=== PATIENT | male | born 1940 | race Caucasian/White ===

== ENCOUNTER → 2022-10-26 | Outpatient (CLI) | payer MEDICARE, SELFPAY ==
--- NOTE | 2022-10-26 14:10 | RAD_ITS ---
STUDY: X-RAY - ABDOMEN/PELVIS REASON FOR EXAM: Male, 82 years old. DIARRHEA TECHNIQUE: Single AP view of the abdomen / pelvis. COMPARISON: None. FINDINGS: Normal visualized lung bases. There is a moderate amount of colonic fecal material. Tiny right intrarenal calculi. Normal soft tissue structures. There are diffuse degenerative changes of the visualized lumbar spine. RAD/Abdomen Single View IMPRESSION: Moderate amount of fecal material is seen in the colon. Small calculi are seen in the right kidney. Electronically Signed: Geoff Do MD at 14:40 EDT ,
[2022-10-26 17:26] LABS: Absolute Neutrophil Count 3.4 X10^3/uL (2.0-7.7); Basophil# 0.04 X10^3/uL; Basophil% 0.7 % (0-1); Eosinophils% 3.6 % (0-5); Hematocrit 45.5 % (40-54); Hemoglobin 14.5 g/dL (13.0-16.5); Lymphocyte % 26.9 % (19-41); Mean Corp Hgb Conc 31.9 g/dL (32-36); Mean Corpuscular Hgb 30.5 pg (27.0-32.0); Mean Corpuscular Volume 95.6 fL (80-94); Mean Platelet Vol. 10.3 fl (6.2-12.0); Monocyte% 7.2 % (0-10); NRBC Flagged by Analyzer 0 % (0-5); Neutrophil # 3.41 X10^3/uL (2.7-7.7); Neutrophil % 61.2 % (47-70); Platelet Count 187 K/mm3 (150-450); RBC Distribution Width CV 14.1 % (11.6-14.6); RBC Distribution Width SD 49.6 fl (35.1-43.9); Red Blood Count 4.76 M/mm3 (4.6-6.2); White Blood Count 5.6 K/mm3 (4.4-11.0)
[2022-10-26 18:46] LABS: ALB/GLOB Ratio 1.2 RATIO (0.9-2.4); AST(SGOT) 16 U/L (15-37); Alanine Aminotransfer ALT/SGPT 24 U/L (16-61); Albumin, Serum 3.5 g/dL (3.2-5.0); Alkaline Phosphatase 68 U/L (45-117); Anion Gap 9 (5-15); BUN 22 mg/dL (7-18); BUN/Creat Ratio 17.5 RATIO (10-20); Calcium,Total 9.5 mg/dL (8.5-10.1); Chloride 106 mmol/L (98-107); Creatinine, Serum 1.26 mg/dL (0.70-1.30); EST Glomerular Filtration Rate 58 mL/min (>60); Est Glom Filt Rate - Afr Amer 70 mL/min (>60); Glucose 129 mg/dL (74-106); Potassium 3.9 mmol/L (3.5-5.1); Protein, Total 6.5 g/dL (6.4-8.2); Sodium Level 144 mmol/L (136-145)
[2022-10-26 19:28] LABS: Hepatitis C Antibody Non-Reactive (Nonreactive); Syphilis Antibodies Non-reactive; Vitamin B12 152 pg/mL (211-911); Vitamin D,25 Hydroxy 38.1 ng/mL
== END | disposition home or self-care (01) ==
PROVIDERS: PCP Family Medicine Geriatric Medicine; Referring Provider Family Medicine Geriatric Medicine; Visit Provider Family Medicine Geriatric Medicine
DX: R19.7 Diarrhea, unspecified (principal); F09 Unspecified mental disorder due to known physiological condition; I10 Essential (primary) hypertension; Z13.29 Encounter for screening for other suspected endocrine disorder; N20.0 Calculus of kidney
CPT/HCPCS: 36415; 74018; 80053; 82306; 82607; 82746; 84443; 85025; 86780; 86803

== ENCOUNTER 2022-11-10 13:01 | Outpatient (CLI) | payer MEDICARE, SELFPAY ==
--- NOTE | 2022-11-10 13:05 | CT_ITS ---
EXAM: CT HEAD WITHOUT INTRAVENOUS CONTRAST CLINICAL INDICATION: MILD COGNITIVE DISORDER TECHNIQUE: Multiple axial images were obtained of the head without intravenous contrast. This CT exam was performed using one or more of the following dose reduction techniques: automated exposure control, adjustment of the mA and/or kV according to patient size, and/or use of iterative reconstruction technique. RADIATION DOSE: CTDIvol = 47.06 mGy, DLP = 925.62 mGy-cm COMPARISON: No relevant prior studies available. FINDINGS: BRAIN AND EXTRA-AXIAL SPACES: Moderate cerebral volume loss. Mild low-attenuation chronic white matter changes. Mild cerebellar volume loss. Moderate intracranial carotid calcifications. No intra- or extra-axial hemorrhage. No evidence of acute infarct. No intracranial mass or mass effect. There is preservation of the gomes/white matter interface. Ventricles are appropriate for age. No hydrocephalus. Basal cisterns are patent. BONES/JOINTS: Unremarkable. No discrete lytic or blastic abnormalities. SINUSES: Completely included sinuses. Unremarkable. MASTOID AIR CELLS: Unremarkable. Clear. ORBITS: Visualized globes, extraocular muscles, optic nerves and retrobulbar fat appear unremarkable. CT/Brain/Head without Contrast IMPRESSION: No acute intracranial abnormality. Moderate chronic changes. Electronically Signed: Luci Mcbride MD at 22:13 EDT ,
--- NOTE | 2022-11-10 13:05 | CT_ITS ---
STUDY: LOW DOSE CT LUNG CANCER SCREENING REASON FOR EXAM: Male, 82 years old. Previous smoker 1.5 ppd x 40 years. Quit 1998. Hypertension, diabetic RADIATION DOSAGE (If Supplied By Facility): CTDIvol = ( 2.39 ) mGy, DLP = ( 83.39 ) mGycm TECHNIQUE: No contrast was administered. Low dose technique was utilized (average mAS-38 and kVp 120). 1.25 mm axial source images with a slice interval of 1.25-mm were reconstructed in lung windows. 2.5 mm axial coronal and sagittal reformats. COMPARISON: None NODULES: Punctate right apical and medial right lung calcified granulomas. No suspicious pulmonary nodules. Parenchyma: Mild bilateral apical scarring. No airspace consolidation, effusion, pneumothorax. Mild peribronchial thickening. No endobronchial mass or layering debris Aorta: Aortic atherosclerosis with ascending aortic ectasia to 3.9 cm CORONARY ARTERIES: Multivessel moderate coronary atherosclerosis. Heart: 2-lead left chest cardiac pacer Pulmonary artery: No main pulmonary arterial enlargement. Mediastinal nodes: No mediastinal or bulky hilar adenopathy. Other chest and abdominal findings: Partial fatty replacement of the pancreas CT/Low Dose CT Lung Screening IMPRESSION: Sequela of prior granulomatous disease. No suspicious pulmonary nodules. Mild bilateral peribronchial thickening as can be seen with bronchitis/bronchiolitis. Borderline ascending aortic ectasia at 3.9 cm. Multivessel coronary atherosclerosis with ascending aorta. Lung-RADS category 1s - Continue annual screening with LDCT in 12 months. IMPORTANT NOTES FOR USE: ACR Lung-RADS Version 1.1 Assessment Categories Release Date: 2018 Category: Coded 0-4 bases on nodule(s) with highest degree of suspicion. Negative screen is defined as categories 1 and 2; a positive screen is defined as categories 3 and 4. Category 3 and 4A nodules that are unchanged on interval CT should be coded as category 2, and individuals returned to screening in 12 months. Category 4X: Category 3 or 4 nodules with additional imaging findings that increase the suspicion of lung cancer, such as spiculation, GGN that doubles in size in 1 year, enlarged lymph notes, etc. Category Modifiers: S (significant finding unrelated to lung cancer) Electronically Signed: Luis Daniel Klein MD at 6:22 EDT ,
== END 2022-11-10 23:59 | disposition home or self-care (01) ==
PROVIDERS: PCP Family Medicine Geriatric Medicine; Referring Provider Family Medicine Geriatric Medicine; Visit Provider Family Medicine Geriatric Medicine
DX: F09 Unspecified mental disorder due to known physiological condition (principal); Z13.89 Encounter for screening for other disorder; Z87.891 Personal history of nicotine dependence
CPT/HCPCS: 70450; 71271

== ENCOUNTER → 2022-12-27 | Outpatient (CLI) | payer MEDICARE, SELFPAY ==
--- NOTE | 2022-12-27 08:54 | AAAS_ITS ---
Reason For Study: Screening Aorta Measurements Aorta Doppler Measurements Proximal aorta measures2.21 x 2.24cm. in cross- Peak systolic flow velocities within the proximal sectional axis. aorta measure 59.6 cm/sec. Proximal aorta measures2.17cm. in longitudinal Peak systolic flow velocities within the mid aorta axis. measure 88.6 cm/sec. Mid aorta measures1.95 x 1.92cm. in cross- Peak systolic flow velocities within the distal sectional axis. aorta measure 86.8 cm/sec. Mid aorta measures1.90cm. in longitudinal axis. Distal aorta measures1.76 x 1.66cm. in cross- sectional axis. Distal aorta measures1.66cm. in longitudinal axis. Heterogenous smooth plaque visualized throughout mid and distal portions of AO. Left Iliac Artery Left iliac artery measures 0.94 x 0.98 cm. in the cross-sectional axis. Left iliac artery measures 0.94 cm. in the longitudinal axis. Peak systolic velocity in the left iliac artery measures 115.8 cm/sec. Right Iliac Artery Right iliac artery measures 0.85 x 0.89 cm. in the cross-sectional axis. Right iliac artery measures 0.95 cm. in the longitudinal axis. Peak systolic velocity in the right iliac artery measures 79.6 cm/sec. Procedure Aorta IVC Iliac vasculature or bypass grafts [id number]. The exam was diagnostic. Exam performed in department. VL/AAA Screening Interpretation Summary Aorta patent, normal caliber Bilateral iliac arteries patent, normal caliber Ordering Physician: Enoc Taylor Chi Referring Physician: Enoc Taylor Chi Performed By: Ulysses Kent, RVT
== END | disposition home or self-care (01) ==
LOC: CVS 08:53
PROVIDERS: PCP Family Medicine Geriatric Medicine; Referring Provider Family Medicine Geriatric Medicine; Visit Provider Family Medicine Geriatric Medicine
DX: I71.40 Abdominal aortic aneurysm, without rupture, unspecified (principal)
CPT/HCPCS: 76706

== ENCOUNTER → 2023-01-30 | Outpatient (CLI) | payer MEDICARE, SELFPAY ==
--- NOTE | 2023-01-30 12:00 | RAD_ITS ---
STUDY: X-RAY - ABDOMEN/PELVIS REASON FOR EXAM: Male, 82 years old. Evaluate for fecal impaction. TECHNIQUE: Single AP view of the abdomen / pelvis on 3 images. COMPARISON: Abdominal images dated October 26, 2022. FINDINGS: Normal visualized lung bases. Normal bowel gas pattern with air seen to the rectosigmoid. No disproportionate dilatation of bowel. No free air. Moderate amount of feces in the colon. The visualized liver, spleen and kidneys are grossly normal in size and morphology. Normal soft tissue structures. Normal visualized osseous structures. RAD/Abdomen Single View IMPRESSION: No acute abnormality. Moderate amount of feces in the colon. Electronically Signed: Edagr Anderson MD at 10:24 EDT ,
== END | disposition home or self-care (01) ==
LOC: RAD 11:54
PROVIDERS: PCP Family Medicine Geriatric Medicine; Referring Provider Family Medicine Geriatric Medicine; Visit Provider Family Medicine Geriatric Medicine
DX: K56.41 Fecal impaction (principal)
CPT/HCPCS: 74018

== ENCOUNTER → 2023-05-08 | Outpatient (CLI) | payer MEDICARE, SELFPAY ==
[2023-05-08 12:13] LABS: Absolute Lymphocyte Count 1.23 X10^3/uL (0.83-4.51); Absolute Neutrophil Count 4.3 X10^3/uL (2.0-7.7); Basophil# 0.03 X10^3/uL; Basophil% 0.5 % (0-1); Eosinophil# 0.13 X10^3/uL; Eosinophils% 2.1 % (0-5); Hemoglobin 13.9 g/dL (13.0-16.5); Lymphocyte # 1.23 X10^3/ul (0.83-4.51); Mean Corp Hgb Conc 31.6 g/dL (32-36); Mean Corpuscular Hgb 29.1 pg (27.0-32.0); Mean Corpuscular Volume 92.1 fL (80-94); Mean Platelet Vol. 10.4 fl (6.2-12.0); Monocyte# 0.38 X10^3/uL; Monocyte% 6.2 % (0-10); NRBC Flagged by Analyzer 0 % (0-5); Neutrophil # 4.34 X10^3/uL (2.7-7.7); Neutrophil % 70.7 % (47-70); Platelet Count 169 K/mm3 (150-450); RBC Distribution Width CV 14.4 % (11.6-14.6); RBC Distribution Width SD 48.7 fl (35.1-43.9); Red Blood Count 4.78 M/mm3 (4.6-6.2); White Blood Count 6.1 K/mm3 (4.4-11.0)
[2023-05-08 12:32] LABS: Vitamin D,25 Hydroxy 40.4 ng/mL
[2023-05-08 12:39] LABS: AST(SGOT) 16 U/L (15-37); Alanine Aminotransfer ALT/SGPT 19 U/L (16-61); Albumin, Serum 3.4 g/dL (3.2-5.0); Alkaline Phosphatase 86 U/L (45-117); Anion Gap 5 (5-15); BUN 21 mg/dL (7-18); BUN/Creat Ratio 15.4 RATIO (10-20); Calcium,Total 9.3 mg/dL (8.5-10.1); Chloride 104 mmol/L (98-107); Creatinine, Serum 1.36 mg/dL (0.70-1.30); EST Glomerular Filtration Rate 53 mL/min (>60); Est Glom Filt Rate - Afr Amer 64 mL/min (>60); Globulin 3.3 g/dL (2.2-4.2); Glucose 225 mg/dL (74-106); Potassium 4.4 mmol/L (3.5-5.1); Protein, Total 6.7 g/dL (6.4-8.2); Sodium Level 140 mmol/L (136-145); Thyroid Stim Hormone (TSH) 6.11 uIU/mL (0.358-3.74)
== END | disposition home or self-care (01) ==
LOC: POLAB3 11:19
PROVIDERS: PCP Family Medicine Geriatric Medicine; Visit Provider Family Medicine Geriatric Medicine
DX: E11.65 Type 2 diabetes mellitus with hyperglycemia (principal); E55.9 Vitamin D deficiency, unspecified; I10 Essential (primary) hypertension
CPT/HCPCS: 36415; 80053; 82306; 84443; 85025